=== PATIENT | female | born 1985 | race Caucasian/White ===

== ENCOUNTER 2017-07-18 09:56 | Inpatient (IN) | payer MEDICAID ==
[2017-07-18] MEDS ORDERED: MISOPROSTOL 200 MCG TAB PR ×2 (10:30→17:00)
[2017-07-18] MEDS ORDERED: OXYTOCIN 30 UNITS/LR 500 ML IV ×3 (10:30→17:00)
[2017-07-18] MEDS ORDERED: METHYLERGONOVINE 0.2 MG INJ IM ×2 (10:30→17:00)
[2017-07-18] MEDS ORDERED: CARBOPROST 250 MCG INJ IM ×2 (10:30→17:00)
[2017-07-18] MEDS: LACTATED RINGER'S 1,000 ML IV ×3 (11:11→12:18)
[2017-07-18 11:14] LABS: ADD MAN DIFF? NO
[2017-07-18 11:16] LABS: WHITE BLOOD COUNT 10.2 10^3/ul (4.8-10.8)
[2017-07-18 11:16] LABS: BASOPHILS % 0.3 % (0.0-2.0); EOSINOPHILS # 0.1 10^3/ul (0.0-0.5); EOSINOPHILS % 0.9 % (0.0-7.0); HEMATOCRIT 33.5 % (37.0-47.0); LYMPHOCYTES # 1.7 10^3/ul (0.8-2.9); MEAN CORPUSCULAR HEMOGLOBIN 28.7 pg (29.0-33.0); MEAN CORPUSCULAR HGB CONC 32.8 g/dl (32.0-37.0); MEAN CORPUSCULAR VOLUME 87.5 fl (82.0-101.0); MEAN PLATELET VOLUME 10.8 fl (7.4-10.4); MONOCYTE # 0.7 10^3/ul (0.3-0.9); MONOCYTES % 6.4 % (0.0-11.0); NEUTROPHIL # 7.5 10^3/ul (1.6-7.5); NEUTROPHILS % 73.2 % (39.0-77.0); PLATELET COUNT 181 10^3/UL (140-415); RED BLOOD COUNT 3.83 10^6/ul (4.20-5.40); RED CELL DISTRIBUTION WIDTH 14.4 % (11.5-14.5)
[2017-07-18 11:44] LABS: INR 0.93; PROTIME 12.6 Sec (11.9-14.9)
[2017-07-18 11:45] LABS: PARTIAL THROMBOPLASTIN TIME 29.6 Sec (25.0-35.0)
[2017-07-18 12:15] LABS: HEPATITIS B SURFACE ANTIGEN NEGATIVE (NEGATIVE)
[2017-07-18] MEDS: METOCLOPRAMIDE 10 MG INJ IV (12:30)
[2017-07-18] MEDS: CITRIC ACID/SODIUM CITRATE 15 ML CUP PO (12:40)
[2017-07-18] MEDS: FAMOTIDINE 20 MG INJ IV (12:40)
[2017-07-18] MEDS ORDERED: FENTAnyl 50 MCG/ML VIAL (12:40)
[2017-07-18] MEDS ORDERED: morphine SULFATE/PF (10 MG/10 ML) INJ (12:40)
[2017-07-18] MEDS ORDERED: PHENYLephrine (100 MCG/ML) 5ML SYG (12:52)
[2017-07-18] MEDS ORDERED: EPHEDrine SULFATE 50 MG/5 ML SYG (13:07)
[2017-07-18] MEDS ORDERED: ONDANSETRON 4 MG INJ (13:16)
[2017-07-18] MEDS: OXYTOCIN 30 UNITS/LR 500 ML IV ×3 (14:22→23:29)
[2017-07-18] MEDS ORDERED: HYDROmorphONE 0.5 MG/0.5 ML SYG IV ×2 (14:30)
[2017-07-18] MEDS ORDERED: MEPERIDINE 25 MG INJ IV (14:30)
[2017-07-18] MEDS ORDERED: HYDROmorphONE (0.2 MG/ML) 10ML SYG IV (14:30)
[2017-07-18] MEDS ORDERED: ZOLPIDEM 5 MG TAB PO (14:30)
[2017-07-18] MEDS ORDERED: KETOROLAC 30 MG INJ IV (14:30)
[2017-07-18] MEDS ORDERED: NALOXONE (0.4 MG/ML) INJ IV (14:30)
[2017-07-18] MEDS ORDERED: PROCHLORPERAZINE 10 MG INJ IV (14:30)
[2017-07-18] MEDS ORDERED: DIPHENHYDRAMINE 50 MG INJ IV ×2 (14:30)
[2017-07-18] MEDS ORDERED: FENTAnyl 50 MCG/ML VIAL IV (14:30)
[2017-07-18] MEDS ORDERED: ONDANSETRON 4 MG INJ IV (14:30)
[2017-07-18] MEDS: ONDANSETRON 4 MG INJ IV (14:39)
[2017-07-18] MEDS: CEFAZOLIN 2 GM/50 ML (PMX) 50 ML IVPB (15:04)
[2017-07-18] MEDS: KETOROLAC 30 MG INJ IV (15:10)
[2017-07-18] MEDS ORDERED: OXYCODONE/ACETAMINOPHEN (5/325) TAB PO ×2 (17:00)
[2017-07-18] MEDS ORDERED: HYDROCODONE/APAP (5/325) TAB PO ×2 (17:00)
[2017-07-18] MEDS: IBUPROFEN 600 MG TAB PO (18:00)
[2017-07-18] MEDS: CEFAZOLIN 1 GM/50 ML (PMX) 50 ML IVPB (20:38)
[2017-07-18 22:35] LABS: RAPID PLASMA REAGIN NONREACTIVE (NR)
[2017-07-19] MEDS: LANOLIN 7 GM TUBE TOP (02:32)
[2017-07-19] MEDS: LACTATED RINGER'S 1,000 ML IV ×2 (03:28→11:00)
[2017-07-19] MEDS: OXYTOCIN 30 UNITS/LR 500 ML IV ×6 (03:52→20:48)
[2017-07-19] MEDS: IBUPROFEN 600 MG TAB PO ×4 (06:00→17:52)
[2017-07-19 08:41] LABS: ADD MAN DIFF? NO
[2017-07-19 08:46] LABS: WHITE BLOOD COUNT 12.8 10^3/ul (4.8-10.8)
[2017-07-19 08:46] LABS: BASOPHILS % 0.3 % (0.0-2.0); EOSINOPHILS % 0.3 % (0.0-7.0); HEMATOCRIT 29.8 % (37.0-47.0); HEMOGLOBIN 9.8 g/dl (12.0-16.0); LYMPHOCYTES # 1.5 10^3/ul (0.8-2.9); LYMPHOCYTES % 11.9 % (15.0-51.0); MEAN CORPUSCULAR HEMOGLOBIN 28.7 pg (29.0-33.0); MEAN CORPUSCULAR HGB CONC 32.9 g/dl (32.0-37.0); MEAN CORPUSCULAR VOLUME 87.1 fl (82.0-101.0); MEAN PLATELET VOLUME 10.6 fl (7.4-10.4); MONOCYTE # 0.9 10^3/ul (0.3-0.9); NEUTROPHIL # 10.2 10^3/ul (1.6-7.5); NEUTROPHILS % 79.2 % (39.0-77.0); PLATELET COUNT 168 10^3/UL (140-415); RED BLOOD COUNT 3.42 10^6/ul (4.20-5.40); RED CELL DISTRIBUTION WIDTH 14.7 % (11.5-14.5)
[2017-07-19] MEDS: SENNA/DOCUSATE NA (8.6MG/50MG) TAB PO ×2 (09:37→21:51)
[2017-07-20] MEDS: OXYTOCIN 30 UNITS/LR 500 ML IV ×2 (00:48→04:48)
[2017-07-20] MEDS: IBUPROFEN 600 MG TAB PO ×5 (06:22→23:59)
[2017-07-20] MEDS: SENNA/DOCUSATE NA (8.6MG/50MG) TAB PO ×2 (09:00→21:00)
[2017-07-20] MEDS: NA PHOSPHATE/BIPHOS 133 ML ENEMA PR (12:07)
[2017-07-21] MEDS: IBUPROFEN 600 MG TAB PO ×2 (05:55→12:13)
[2017-07-21] MEDS: SENNA/DOCUSATE NA (8.6MG/50MG) TAB PO (10:05)
[2017-07-21] MEDS: DIPHTH/TET/ACEL PERTUSS (ADULT) 0.5 ML VIAL IM* (12:15)
== END 2017-07-21 14:10 | disposition home or self-care (01) | DRG 766 ==
LOC: L-D 09:56 → PP1 16:46
PROVIDERS: Obstetrics & Gynecology
PROC: 10D00Z1 Extraction of Products of Conception, Low, Open Approach (ICD-10-PCS; principal; 2017-07-18 12:30)
PROC: 3E033VJ Introduction of Other Hormone into Peripheral Vein, Percutaneous Approach (ICD-10-PCS; 2017-07-18 12:30)
DX: O34.211 Maternal care for low transverse scar from previous cesarean delivery (principal); Z37.0 Single live birth; Z3A.39 39 weeks gestation of pregnancy
CPT/HCPCS: 85025; 85610; 85730; 86592; 86850; 86900; 86901; 87340; 90715; 94760; 99464